=== PATIENT | female | born 1965 | race Caucasian/White ===

== ENCOUNTER → 2016-02-24 | Outpatient (CLI) | payer BC ==
[~2016-02-24] MED LIST: ALBUAER2 INH; ALPR-411 PO; ERGO500037 PO; LPR50X PO; LPT/20 PO; LSN5 PO; SERT1TAB92 PO; TOPI25TA10 PO; ZLF/100 PO
--- NOTE | 2016-02-24 15:47 | DIAGNOSTIC IMAGING REPORT ---
BILATERAL KNEES (6 VIEWS) CLINICAL HISTORY: Bilateral knee pain COMPARISON: None. DISCUSSION: There are moderate bilateral osteoarthritic changes more severe in the right with bilateral medial joint compartment narrowing more severe in the right. There are no acute fractures. There are degenerative changes present within the patellofemoral joints. No destructive lesions are evident. IMPRESSION: 1. No acute fractures 2. Bilateral osteoarthritic changes more severe in the right Electronically signed by: Colton Quintanilla M.D. 02/24/2016 3:45 PM Dictated Date/Time: 02/24/2016 3:43 PM
== END | disposition home or self-care (01) ==
LOC: C.RDSM 14:30
PROVIDERS: ATTEND Physical Medicine & Rehabilitation Sports Medicine
DX: M25.561 Pain in right knee (principal); M25.562 Pain in left knee

== ENCOUNTER → 2017-03-18 | Outpatient (CLI) | payer BC ==
[~2017-03-18] MED LIST changes: -LPT/20 PO; +LPT20 PO
--- NOTE | 2017-03-18 14:47 | DIAGNOSTIC IMAGING REPORT ---
Bilateral knees I VIEWS CLINICAL HISTORY: Bilateral knee pain COMPARISON: February 2016 DISCUSSION: Bilateral osteoarthritic changes are again evident. No acute fractures are visualized. There are tiny bilateral dorsal patellar spurs. There is persistent bilateral medial joint compartment narrowing more severe on the right. IMPRESSION: 1. No acute fractures 2. Bilateral osteoarthritic changes more severe on the right Electronically signed by: Colton Quintanilla M.D. 03/18/2017 2:45 PM Dictated Date/Time: 03/18/2017 2:44 PM
== END | disposition home or self-care (01) ==
LOC: C.RDSM 19:43
PROVIDERS: ATTEND Physician Assistant
DX: M17.0 Bilateral primary osteoarthritis of knee (principal)